=== PATIENT | female | born 1960 | race Caucasian/White ===

== ENCOUNTER 2016-03-29 13:59 | Outpatient (CLI) | payer OTHER | END 2016-03-29 14:00 | disposition home or self-care (01) | LOC: NAV LABSP 13:59 | PROVIDERS: ATTEND Internal Medicine | DX: Z00.00 Encounter for general adult medical examination without abnormal findings (principal); R73.01 Impaired fasting glucose; E78.5 Hyperlipidemia, unspecified | CPT/HCPCS: 82270 ==

== ENCOUNTER 2016-07-02 10:51 | Outpatient (CLI) | payer BC, SELFPAY ==
[2016-07-02 12:54] LABS: Cardiac Risk 4.6 (Less than 4.5)
== END 2016-07-02 10:52 ==
LOC: NAVSJIPCSP 10:51
PROVIDERS: ATTEND Internal Medicine
DX: E78.5 Hyperlipidemia, unspecified (principal)
CPT/HCPCS: 36415; 80061